=== PATIENT | male | born 1945 | race Caucasian/White ===

== ENCOUNTER 2016-12-07 13:52 | Emergency (ER) | payer OTHER ==
[~2016-12-07] VITALS: Ht 177.8 cm; Wt 95.0 kg
[~2016-12-07 13:52] MED LIST: ASPI325T PO; LEVO25TA6 PO; LISI-357 PO; METO50TA PO
[2016-12-07 13:58] VITALS: BP 157/100; PULSE 83; RESP 22; TEMP 98.4; O2SAT 98
[2016-12-07 14:18] VITALS: BP 156/94; PULSE 89; RESP 18; TEMP 98.5; O2SAT 98
[2016-12-07 14:23] VITALS: BP 156/94; PULSE 94; RESP 18; TEMP 98.5; O2SAT 97
[2016-12-07] MEDS ORDERED: SODIUM CHLORIDE 0.9% FLUSH 10 ML FLUSH IVF PRN (14:45)
[2016-12-07 15:17] LABS: AUTOMATED NEUTROPHIL # 5.2 TH/MM3 (1.8-7.7); BASOPHIL % 0.6 % (0.0-2.0); EOSINOPHIL # 0.4 TH/MM3 (0-0.4); HEMATOCRIT 45.4 % (39.0-51.0); HEMO FLAGS DIFF FINAL; LYMPH % 12.7 % (9.0-44.0); LYMPHOCYTE # 0.9 TH/MM3 (1.0-4.8); MEAN CELL VOLUME 97.7 FL (80.0-100.0); MEAN CORPUSCULAR HEMOGLOBIN 33.1 PG (27.0-34.0); MEAN CORPUSCULAR HGB CONC 33.9 % (32.0-36.0); MONO % 9.5 % (0.0-8.0); NEUT % 72.2 % (16.0-70.0); PLATELET COUNT 162 TH/MM3 (150-450); RED BLOOD COUNT 4.65 MIL/MM3 (4.50-5.90); RED CELL DISTRIBUTION WIDTH 13.1 % (11.6-17.2); WHITE BLOOD COUNT 7.2 TH/MM3 (4.0-11.0)
[2016-12-07 15:34] LABS: ANION GAP 5 MEQ/L (5-15); BICARBONATE 27.6 MEQ/L (21.0-32.0); BLOOD UREA NITROGEN 16 MG/DL (7-18); CHLORIDE 106 MEQ/L (98-107); GLOMERULAR FILTRATION RATE 60 ML/MIN (>89); MAGNESIUM 2.1 MG/DL (1.5-2.5); POTASSIUM 3.5 MEQ/L (3.5-5.1); SODIUM (NA) 139 MEQ/L (136-145)
[2016-12-07] MEDS ORDERED: LEVO25TA4 PO (15:35)
[2016-12-07] MEDS ORDERED: ASPI81CH CHEW (15:35)
--- NOTE | 2016-12-07 15:38 | RADRPT ---
EXAM DATE/TIME: 12/07/2016 15:15 [place] COMPARISON: No previous studies available for comparison. INDICATIONS : Shortness of breath. MEDICAL HISTORY : Hypertension. A-fib. SURGICAL HISTORY : Triple bypass. Stents. ENCOUNTER: Initial ACUITY: 1 day PAIN SCORE: 0/10 LOCATION: Bilateral chest FINDINGS: 2 portable films of the chest show mild cardiomegaly. No pulmonary vascular engorgement. Median galeana otomy wires and coronary markers. Clear lungs. No effusions. CONCLUSION: 1. Cardiomegaly. 2. Clear lungs. Agusto Underwood Jr., MD on December 07, 2016 at 15:36 Board Certified Radiologist. This report was verified electronically.
[2016-12-07 15:41] LABS: CREATINE KINASE 40 U/L (39-308)
[2016-12-07 15:56] LABS: APTT (PATIENT) 27.5 SEC (24.3-30.1); PROTHROMBIN TIME - PATIENT 11.3 SEC (9.8-11.6)
[2016-12-07 16:40] VITALS: RESP 18; O2SAT 98
[2016-12-07] MEDS ORDERED: RIVAROXABAN 20 MG TAB PO ONE (16:45)
[2016-12-07] MEDS ORDERED: XARE20TA PO (16:47)
--- NOTE | 2016-12-07 16:48 | PD ---
HPI Chief Complaint: Abnormal Results Time Seen by Provider: 14:30 Travel History International Travel<30 days: No Contact w/Intl Traveler<30days: No Traveled to known affect area: No History of Present Illness HPI 71-year-old male came to the emergency room with history of new onset atrial fibrillation. Patient was sent from his primary care office from [facility]. Patient says that he went to the office for a regular visit. When the doctor was auscultating his chest his heart rate sounded irregular which prompted the EKG. Patient denies of any chest pain, lightheadedness or shortness of breath. His on the other hand says that for past 1 week he has been complaining of shortness of breath and some lightheadedness occasionally. Patient vehemently denied this. As per him, he has been asymptomatic. His vital signs are stable otherwise. Patient has history of triple-vessel CABG 4 years ago. He does not see the pipeline construction inspector anymore. Patient takes 1 baby aspirin every day. PFSH Past Medical History Narrative Medical List of his past medical, surgical, social and family history is reviewed from the nursing note. Heart Rhythm Problems: No Cancer: No Cardiac Catheterization: No Cardiovascular Problems: Yes (CAD, CABGX4 [place] 2013. ST[place] 2009, [place]) High Cholesterol: No Congestive Heart Failure: No Coronary Artery Disease: Yes Diabetes: No Diminished Hearing: No Gastrointestinal Disorders: Yes (HEMMORROID REMOVAL) Genitourinary: No Hypertension: Yes (BORDERLINE) Neurologic: No Psychiatric: Yes (POST TRAUMATIC STRESS DISORDER) Respiratory: No Immunizations Current: Yes Thyroid Disease: Yes Tetanus Vaccination: Unknown Past Surgical History Cardiac Surgery: Yes (TRIPLE BIPASS IN FEBRUARY 2012.) Coronary Artery Bypass Graft: No Coronary Stent: Yes Other Surgery: Yes (HEMMORHOID SURGERY.) Family History Family Myocardial Infarction: Yes (MOTHER, BROTHER) Social History Alcohol Use: Yes (DAILY 3-4 BEERS DAILY ) Tobacco Use: No (quit smoking at the age of 28) Substance Use: No Allergies-Medications (Allergen,Severity, Reaction): Coded Allergies: amoxicillin (Unverified Allergy, Mild, Rash, 12/07/16) diphenhydramine (Unverified Allergy, Mild, Drowsiness, 12/07/16) Comments List of his allergies reviewed from the nursing note. Reported Meds & Prescriptions Reported Meds & Active Scripts Active Xarelto (Rivaroxaban) 20 Mg Tab 20 Mg PO DAILY 30 Days Reported Lisinopril 5 Mg Tab 5 Mg PO DAILY Metoprolol Tartrate 25 Mg Tab 25 Mg PO BID Levothyroxine (Levothyroxine Sodium) 25 Mcg Tab 25 Mcg PO DAILY Aspirin 81 Mg Chew 81 Mg CHEW DAILY Narrative Medication List of his home medications reviewed from the nursing note. Review of Systems Except as stated in HPI: all other systems reviewed are Neg Cardiovascular: Positive: Irregular Rhythm Physical Exam Narrative GENERAL: Awake, alert, no obvious distress SKIN: Focused skin assessment warm/dry. HEAD: Atraumatic. Normocephalic. EYES: Pupils equal and round. No scleral icterus. No injection or drainage. ENT: No nasal bleeding or discharge. Mucous membranes pink and moist. NECK: Trachea midline. No JVD. CARDIOVASCULAR: Irregularly irregular rhythm. No murmur appreciated. RESPIRATORY: No accessory muscle use. Clear to auscultation. Breath sounds equal bilaterally. GASTROINTESTINAL: Abdomen soft, non-tender, nondistended. Hepatic and splenic margins not palpable. MUSCULOSKELETAL: No obvious deformities. No clubbing. No cyanosis. No edema. NEUROLOGICAL: Awake and alert. No obvious cranial nerve deficits. Motor grossly within normal limits. Normal speech. PSYCHIATRIC: Appropriate mood and affect; insight and judgment normal. Data Data Last Documented VS Vital Signs Date Time Temp Pulse Resp B/P (MAP) Pulse Ox O2 Delivery O2 Flow Rate FiO2 12/07/16 17:39 12/07/16 16:40 98 Room Air 12/07/16 16:40 18 12/07/16 14:23 84 12/07/16 14:23 98.5 Orders Orders Electrocardiogram (12/07/16 14:44) Basic Metabolic Panel (Bmp) (12/07/16 14:44) Ckmb (Isoenzyme) Profile (12/07/16 14:44) Complete Blood Count With Diff (12/07/16 14:44) Magnesium (Mg) (12/07/16 14:44) Prothrombin Time / Inr (Pt) (12/07/16 14:44) Act Partial Throm Time (Ptt) (12/07/16 14:44) Troponin I (12/07/16 14:44) Chest, Single Ap (12/07/16 14:44) Ecg Monitoring (12/07/16 14:44) Bilateral Bp Monitoring (12/07/16 14:44) Iv Access Insert/Monitor (12/07/16 14:44) Oximetry (12/07/16 14:44) Oxygen Administration (12/07/16 14:44) Sodium Chloride 0.9% Flush (Ns Flush) (12/07/16 14:45) Rivaroxaban (Xarelto) (12/07/16 16:45) Ed Discharge Order (12/07/16 16:48) Labs Laboratory Tests Test 12/07/16 14:48 White Blood Count 7.2 TH/MM3 Red Blood Count 4.65 MIL/MM3 Hemoglobin 15.4 GM/DL Hematocrit 45.4 % Mean Corpuscular Volume 97.7 FL Mean Corpuscular Hemoglobin 33.1 PG Mean Corpuscular Hemoglobin Concent 33.9 % Red Cell Distribution Width 13.1 % Platelet Count 162 TH/MM3 Mean Platelet Volume 7.9 FL Neutrophils (%) (Auto) 72.2 % Lymphocytes (%) (Auto) 12.7 % Monocytes (%) (Auto) 9.5 % Eosinophils (%) (Auto) 5.0 % Basophils (%) (Auto) 0.6 % Neutrophils # (Auto) 5.2 TH/MM3 Lymphocytes # (Auto) 0.9 TH/MM3 Monocytes # (Auto) 0.7 TH/MM3 Eosinophils # (Auto) 0.4 TH/MM3 Basophils # (Auto) 0.0 TH/MM3 CBC Comment DIFF FINAL Differential Comment Prothrombin Time 11.3 SEC Prothromb Time International Ratio 1.0 RATIO Activated Partial Thromboplast Time 27.5 SEC Blood Urea Nitrogen 16 MG/DL Creatinine 1.19 MG/DL Random Glucose 131 MG/DL Calcium Level 8.4 MG/DL Magnesium Level 2.1 MG/DL Sodium Level 139 MEQ/L Potassium Level 3.5 MEQ/L Chloride Level 106 MEQ/L Carbon Dioxide Level 27.6 MEQ/L Anion Gap 5 MEQ/L Estimat Glomerular Filtration Rate 60 ML/MIN Total Creatine Kinase 40 U/L Troponin I LESS THAN 0.02 NG/ML MDM Medical Decision Making Medical Screen Exam Complete: Yes Emergency Medical Condition: Yes Medical Record Reviewed: Yes Interpretation(s) Twelve-lead EKG was reviewed by me. Atrial fibrillation, left axis deviation, questionable old inferior [place]. Heart rate of 93 bpm. Differential Diagnosis New-onset A. fib, congestive heart failure, ACS Narrative Course 5:15 PM blood test results of back and within normal limit. Patient will be discharged home after being started on Xarelto and a prescription for Xarelto. I've asked him to call his pipeline construction inspector and make an appointment to be seen soon. He was given a coupon for 1 month supply of Xarelto as well. Patient was explained all this and all his questions as well has his needs were answered to the best of my ability. Procedures EKG Prior to Arrival: No Diagnosis Primary Impression: New onset a-fib Referrals: Primary Care Physician Additional Instructions: Please follow-up with your pipeline construction inspector in next couple days. Follow-up with your primary care doctor. Take the medication as per the prescription direction. Use the coupon that has been given to you at the pharmacy to you get an authorization from your insurance. Return to the ER if the condition worsens or any other new concerns. Do not take aspirin. Med/Other Pt SpecificInfo: Prescription(s) given, Existing Med Changed ( stop taking aspirin) Scripts Rivaroxaban (Xarelto) 20 Mg Tab 20 MG PO DAILY for Blood Clot Prevention for 30 Days, #30 TAB 0 Refills Prov: Anabela Barrientos MD 12/07/16 Disposition: 01 DISCHARGE HOME Condition: Stable Anabela Barrientos MD Dec 07, 2016 16:48
[2016-12-07] MEDS ORDERED: METO25TA3 PO (17:06)
[2016-12-07] MEDS ORDERED: LISI-519 PO (17:06)
--- NOTE | 2016-12-07 18:48 | EKG ---
Date Performed: 12/07/2016 Time Performed: 14:12:55 PTAGE: 71 years EKG: ATRIAL FIBRILLATION INFERIOR MYOCARDIAL INFARCTION ABNORMAL ECG PREVIOUS TRACING : 12/05/2013 16.22 Compared to previous tracing, atrial fibrillation has repla etelvina Sinus rhythm . DOCTOR: Manpreet Gonzalez Interpretating Date/Time 12/07/2016 18:46:37
== END 2016-12-07 18:03 | disposition home or self-care (01) ==
LOC: NEPC 13:52
DX: I48.91 Unspecified atrial fibrillation (principal); R94.31 Abnormal electrocardiogram [ECG] [EKG]; I10 Essential (primary) hypertension; E07.9 Disorder of thyroid, unspecified; Z79.82 Long term (current) use of aspirin; Z95.1 Presence of aortocoronary bypass graft; Z86.79 Personal history of other diseases of the circulatory system; Z87.19 Personal history of other diseases of the digestive system; Z86.59 Personal history of other mental and behavioral disorders
CPT/HCPCS: 71010; 80048; 82550; 83735; 84484; 85025; 85610; 85730; 93005; 99285